=== PATIENT | female | born 1990 | race African-American/Black ===

== ENCOUNTER 2017-03-22 18:10 | Emergency (ER) | payer MEDICAID ==
[~2017-03-22] VITALS: Ht 165.1 cm; Wt 107.5 kg
[~2017-03-22 18:10] MED LIST: OXYC-302 PO; PREN1TAB60 PO
[2017-03-22 18:50] VITALS: BP 117/76
[2017-03-22] MEDS ORDERED: FLUO40CA9 PO (19:38)
[2017-03-22] MEDS ORDERED: LAMO25TA5 PO (19:38)
[2017-03-22 20:00] LABS: MEAN CORPUSCULAR HEMOGLOBIN 28.9 pg (27.0-34.8); MEAN CORPUSCULAR VOLUME 87.5 fL (80-100); MEAN PLATELET VOLUME 7.6 fL (7.4-10.4); PLATELET COUNT 376 x10^3/uL (130-400); RED CELL DISTRIBUTION WIDTH 13.3 % (9.6-15.2)
[2017-03-22 20:01] LABS: BASOPHILS # (AUTO) 0.04 x10^3/uL (0-0.1); BASOPHILS % (AUTO) 1 % (0-1); EOSINOPHILS # (AUTO) 0.14 x10^3/uL (0-0.4); EOSINOPHILS % (AUTO) 2 % (1-7); LYMPHOCYTES # (AUTO) 2.19 x10^3/uL (1-3.4); LYMPHOCYTES % (AUTO) 29 % (22-44); MD NO; MONOCYTES # (AUTO) 0.45 x10^3/uL (0.2-0.8); MONOCYTES % (AUTO) 6 % (2-9); NEUTROPHILS # (AUTO) 4.67 x10^3/uL (1.8-6.8); NEUTROPHILS % (AUTO) 62 % (42-75)
== END 2017-03-22 21:25 | disposition home or self-care (01) ==
LOC: ED 21:20
DX: R05 Cough (principal); R51 Headache
CPT/HCPCS: 36415; 71046; 82962; 85025; 99285

== ENCOUNTER 2017-03-25 16:07 | Emergency (ER) | payer MEDICAID ==
[~2017-03-25] VITALS: Ht 165.1 cm; Wt 81.0 kg
[~2017-03-25 16:07] MED LIST changes: +FLUO40CA9 PO; +LAMO25TA5 PO
[2017-03-25] MEDS ORDERED: SODIUM CHLORIDE FLUSH 10ML SYR IVF ONE (17:30)
[2017-03-25] MEDS ORDERED: SODIUM CHLORIDE 0.9% 1,000ML IVBOLUS ONE (17:30)
[2017-03-25 17:48] LABS: BASOPHILS # (AUTO) 0.03 x10^3/uL (0-0.1); BASOPHILS % (AUTO) 1 % (0-1); EOSINOPHILS # (AUTO) 0.16 x10^3/uL (0-0.4); EOSINOPHILS % (AUTO) 3 % (1-7); HCT (SEDRATE) 43.8 % (34.6-47.8); LYMPHOCYTES # (AUTO) 1.66 x10^3/uL (1-3.4); LYMPHOCYTES % (AUTO) 26 % (22-44); MD NO; MEAN CORPUSCULAR HEMOGLOBIN 28.5 pg (27.0-34.8); MEAN CORPUSCULAR HGB CONC 32.9 g/dL (32.4-35.8); MEAN CORPUSCULAR VOLUME 86.8 fL (80-100); MEAN PLATELET VOLUME 7.6 fL (7.4-10.4); MONOCYTES # (AUTO) 0.42 x10^3/uL (0.2-0.8); MONOCYTES % (AUTO) 6 % (2-9); NEUTROPHILS # (AUTO) 4.24 x10^3/uL (1.8-6.8); NEUTROPHILS % (AUTO) 65 % (42-75); PLATELET COUNT 383 x10^3/uL (130-400); RED BLOOD COUNT 5.04 x10^6/uL (3.82-5.3); RED CELL DISTRIBUTION WIDTH 12.9 % (9.6-15.2)
[2017-03-25 17:56] LABS: ALANINE AMINOTRANSFERASE 22 U/L (12-78); ALBUMIN 3.9 g/dL (3.4-5.0); ANION GAP 7 mmol/L (5-15); C-REACTIVE PROTEIN, QUANT 0.16 mg/dL (0.02-0.49); CALCIUM 8.9 mg/dL (8.5-10.1); CHLORIDE 107 mmol/L (98-107)
[2017-03-25 17:59] LABS: ALKALINE PHOSPHATASE 80 U/L (45-117); BILIRUBIN,TOTAL 0.7 mg/dL (0.2-1.0); CREATININE 0.99 mg/dL (0.55-1.02); TOTAL PROTEIN 7.8 g/dL (6.4-8.2)
[2017-03-25] MEDS ORDERED: KETOROLAC 30 MG/1 ML ONE (18:10)
[2017-03-25 18:16] LABS: MICROSCOPIC AUTO
[2017-03-25 18:17] LABS: CULTURE INDICATED? NO
[2017-03-25 18:24] LABS: SEDIMENTATION RATE 18 mm/hr (0-20)
[2017-03-25] MEDS ORDERED: KETOROLAC 30 MG/1 ML IVPush ONE (18:30)
[2017-03-25] MEDS ORDERED: OMNIPAQUE 350 MG/ML, 100ML BOTTLE ONE (18:38)
[2017-03-25] MEDS ORDERED: AZITHROMYCIN 250 MG TABLET ONE (19:19)
[2017-03-25 19:24] VITALS: BP 110/44
[2017-03-25] MEDS ORDERED: AZITHROMYCIN 500 MG TABLET PO ONE (19:30)
== END 2017-03-25 19:26 | disposition home or self-care (01) ==
LOC: ED 19:15
DX: L04.0 Acute lymphadenitis of face, head and neck (principal); L04.8 Acute lymphadenitis of other sites; A28.1 Cat-scratch disease; F31.9 Bipolar disorder, unspecified
CPT/HCPCS: 36415; 70450; 70491; 71045; 80053; 81001; 85025; 85651; 86140; 86611; 96361; 96374; 99285; J1885; J7030; Q9967

== ENCOUNTER 2018-05-16 09:15 | Emergency (ER) | payer MEDICAID, OTHER ==
[~2018-05-16] VITALS: Ht 167.6 cm; Wt 87.0 kg
[~2018-05-16 09:15] MED LIST changes: +BUSP5TAB2 PO; +LAMO200T3 PO
[2018-05-16 10:02] LABS: BASOPHILS # (AUTO) 0.02 x10^3/uL (0-0.1); BASOPHILS % (AUTO) 1 % (0-1); EOSINOPHILS # (AUTO) 0.09 x10^3/uL (0-0.4); EOSINOPHILS % (AUTO) 2 % (1-7); LYMPHOCYTES # (AUTO) 1.39 x10^3/uL (1-3.4); LYMPHOCYTES % (AUTO) 28 % (22-44); MD NO; MEAN CORPUSCULAR HEMOGLOBIN 28.5 pg (27.0-34.8); MEAN CORPUSCULAR HGB CONC 32.8 g/dL (32.4-35.8); MEAN CORPUSCULAR VOLUME 86.7 fL (80-100); MEAN PLATELET VOLUME 7.7 fL (7.4-10.4); MONOCYTES # (AUTO) 0.25 x10^3/uL (0.2-0.8); MONOCYTES % (AUTO) 5 % (2-9); NEUTROPHILS # (AUTO) 3.19 x10^3/uL (1.8-6.8); NEUTROPHILS % (AUTO) 65 % (42-75); PLATELET COUNT 415 x10^3/uL (130-400); RED BLOOD COUNT 5.14 x10^6/uL (3.82-5.3); RED CELL DISTRIBUTION WIDTH 13.2 % (9.6-15.2)
[2018-05-16 10:08] LABS: ALANINE AMINOTRANSFERASE 24 U/L (12-78); ANION GAP 7 mmol/L (5-15); CALCIUM 8.7 mg/dL (8.5-10.1); CHLORIDE 109 mmol/L (98-107); CREATININE 1.07 mg/dL (0.55-1.02)
[2018-05-16 10:13] LABS: ALKALINE PHOSPHATASE 91 U/L (45-117); BILIRUBIN,TOTAL 0.9 mg/dL (0.2-1.0); TOTAL PROTEIN 7.6 g/dL (6.4-8.2)
--- NOTE | 2018-05-16 10:27 | NUR ---
PT TO ROOM FROM LOBBY.
[2018-05-16 10:48] LABS: MICROSCOPIC AUTO
[2018-05-16 10:53] LABS: CULTURE INDICATED? YES
[2018-05-16 11:26] VITALS: BP 119/72
== END 2018-05-16 11:29 | disposition home or self-care (01) ==
LOC: ED 10:57
DX: K29.00 Acute gastritis without bleeding (principal)
CPT/HCPCS: 36415; 76700; 80053; 81001; 83690; 84703; 85025; 87086; 99284

== ENCOUNTER 2018-06-22 14:50 | Emergency (ER) | payer OTHER ==
[~2018-06-22] VITALS: Ht 167.6 cm; Wt 84.8 kg
[2018-06-22 14:51] VITALS: BP 123/74
== END 2018-06-22 15:21 | disposition home or self-care (01) ==
LOC: ED 15:10
DX: F31.9 Bipolar disorder, unspecified (principal); Z76.0 Encounter for issue of repeat prescription
CPT/HCPCS: 99283

== ENCOUNTER 2020-09-19 21:34 | Emergency (ER) | payer OTHER ==
[~2020-09-19] VITALS: Ht 167.6 cm; Wt 75.0 kg
[~2020-09-19 21:34] MED LIST changes: -OXYC-302 PO; +OXYC1TAB14 PO
[2020-09-19 21:35] VITALS: BP 117/80
--- NOTE | 2020-09-19 21:48 | NUR ---
XRAY ORDERED PER PROTOCOL. 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
[2020-09-19] MEDS ORDERED: KETOROLAC 30 MG/1 ML ONE (22:15)
[2020-09-19] MEDS ORDERED: ACETAMINOPHEN 500 MG TABLET ONE (22:15)
--- NOTE | 2020-09-19 22:20 | NUR ---
MEDS ADMIN PER MAY.
[2020-09-19] MEDS ORDERED: ACETAMINOPHEN 500 MG TABLET PO ONE (22:30)
[2020-09-19] MEDS ORDERED: KETOROLAC 30 MG/1 ML IM ONE (22:30)
== END 2020-09-19 22:42 | disposition home or self-care (01) ==
LOC: ED 22:00
DX: G89.11 Acute pain due to trauma (principal); M79.672 Pain in left foot; W18.30XA Fall on same level, unspecified, initial encounter; Y93.89 Activity, other specified; Y92.89 Other specified places as the place of occurrence of the external cause; Y99.8 Other external cause status
CPT/HCPCS: 73630; 96372; 99283; J1885